=== PATIENT | male | born 1970 | race Caucasian/White ===

== ENCOUNTER 2017-09-03 18:30 | Emergency (ER) | payer OTHER ==
[~2017-09-03] VITALS: Ht 175.3 cm; Wt 90.7 kg
[~2017-09-03 18:30] MED LIST: ACETAMINOPHEN-1 EAC1 PO; AMOXICILLIN500 M1 PO; BENAZEPRIL HCL20 MG PO; BYSTOLIC 5 MG5 M1 PO; CELEBREX 200 M200 M1; COZAAR 25 MG TA25 M1 PO; FLEXERIL PO; HYDROCODON-ACE1 EAC7 PO; IBUPROFEN 800800 M1 PO; LIPITOR40 MG; NOHOMEMEDICATIONS; NORCO 5-325 TA1 EACH PO; NORFLEX100 MG PO; RITALIN5 MG PO; ROBAXIN500 MG PO; VICODIN 5-5001 EACH PO; ZOCOR20 MG PO
[2017-09-03 18:38] VITALS: BP 151/105
[2017-09-03] MEDS ORDERED: AMOXICILLIN875 MG PO (18:59)
[2017-09-03] MEDS ORDERED: NAPROSYN500 MG PO (19:08)
[2018-05-30] MEDS ORDERED: LIPITOR10 MG PO (14:18)
[2018-05-30] MEDS ORDERED: NORCO 5-325 TA1 EACH PO (15:32)
== END 2017-09-03 19:10 | disposition home or self-care (01) ==
LOC: M.ERS 18:30
DX: H66.92 Otitis media, unspecified, left ear (principal); M77.02 Medial epicondylitis, left elbow; I10 Essential (primary) hypertension; E78.00 Pure hypercholesterolemia, unspecified; F98.8 Other specified behavioral and emotional disorders with onset usually occurring in childhood and adolescence

== ENCOUNTER 2018-07-27 18:19 | Emergency (ER) | payer OTHER ==
[~2018-07-27] VITALS: Ht 175.3 cm; Wt 90.7 kg
[~2018-07-27 18:19] MED LIST changes: +AMOXICILLIN875 MG PO; +LIPITOR10 MG PO; +NAPROSYN500 MG PO
[2018-07-27] MEDS ORDERED: LISINOPRIL20 MG PO (18:35)
[2018-07-27] MEDS ORDERED: NABUMETONE 750750 M1 PO (20:25)
[2018-07-27] MEDS ORDERED: TRAMADOL 50 MG50 MG PO (21:05)
[2018-07-27] MEDS ORDERED: NORCO 5-325 TA1 EACH PO (21:51)
[2018-07-27 22:31] VITALS: BP 149/92
== END 2018-07-27 22:32 | disposition home or self-care (01) ==
LOC: M.ERS 18:19
DX: S52.571A Other intraarticular fracture of lower end of right radius, initial encounter for closed fracture (principal); I10 Essential (primary) hypertension; E78.00 Pure hypercholesterolemia, unspecified; F98.8 Other specified behavioral and emotional disorders with onset usually occurring in childhood and adolescence; X58.XXXA Exposure to other specified factors, initial encounter; Y92.89 Other specified places as the place of occurrence of the external cause; Y93.89 Activity, other specified; Y99.8 Other external cause status

== ENCOUNTER 2019-10-02 09:49 | Emergency (ER) | payer OTHER ==
[~2019-10-02] VITALS: Ht 175.3 cm; Wt 104.3 kg
[~2019-10-02 09:49] MED LIST changes: +LISINOPRIL20 MG PO; +NABUMETONE 750750 M1 PO; +TRAMADOL 50 MG50 MG PO
[2019-10-02] MEDS ORDERED: TYLENOL WITH CO1 TA1 PO (11:04)
[2019-10-02] MEDS ORDERED: MOBIC7.5 MG PO (11:04)
[2019-10-02 11:32] VITALS: BP 159/72
== END 2019-10-02 11:32 | disposition home or self-care (01) ==
LOC: M.ERS 09:49
DX: M25.512 Pain in left shoulder (principal); M25.532 Pain in left wrist; I10 Essential (primary) hypertension; E78.00 Pure hypercholesterolemia, unspecified; F98.8 Other specified behavioral and emotional disorders with onset usually occurring in childhood and adolescence; Z79.899 Other long term (current) drug therapy

== ENCOUNTER 2019-11-10 16:56 | Emergency (ER) | payer OTHER ==
[~2019-11-10] VITALS: Ht 175.3 cm; Wt 102.1 kg
[~2019-11-10 16:56] MED LIST changes: +MOBIC7.5 MG PO; +TYLENOL WITH CO1 TA1 PO
[2019-11-10] MEDS ORDERED: NAPROSYN500 MG PO (18:10)
[2019-11-10 18:33] VITALS: BP 160/90
== END 2019-11-10 18:34 | disposition home or self-care (01) ==
LOC: M.ERS 16:56
DX: M25.532 Pain in left wrist (principal); I10 Essential (primary) hypertension; E78.00 Pure hypercholesterolemia, unspecified; F90.9 Attention-deficit hyperactivity disorder, unspecified type